=== PATIENT | male | born 1990 | race Caucasian/White ===

== ENCOUNTER 2017-04-04 13:31 | Emergency (ER) | payer OTHER ==
[~2017-04-04] VITALS: Ht 185.4 cm; Wt 147.5 kg
[~2017-04-04 13:31] MED LIST: NOHOMEMEDS
[2017-04-04] MEDS ORDERED: CLINDAMYCIN HC300 MG PO (16:18)
[2017-04-04] MEDS ORDERED: NORCO 5/3251 TABLET PO (16:21)
[2017-04-04 16:35] VITALS: BP 144/106
== END 2017-04-04 16:35 | disposition home or self-care (01) ==
LOC: EME 13:31
PROC: 0J990ZZ Drainage of Buttock Subcutaneous Tissue and Fascia, Open Approach (ICD-10-PCS; principal; 2017-04-04)
DX: L02.31 Cutaneous abscess of buttock (principal)
CPT/HCPCS: 99281; 99284